=== PATIENT | male | born 2000 | race African-American/Black ===

== ENCOUNTER 2021-04-17 16:08 | Emergency (ER) | payer BC, MEDICAID, SELFPAY ==
[2021-04-17 18:58] VITALS: BP 142/82; PULSE 84; RESP 16; TEMP 36.4; O2SAT 100
--- NOTE | 2021-04-17 21:33 | PC.NURSE ---
Pt walks out prior to seeing provider. No sign of distress of any kind. Ambulatory with steady gait.
== END 2021-04-18 04:33 | disposition left against medical advice (07) ==
DX: R10.31 Right lower quadrant pain (principal)
CPT/HCPCS: 99199

== ENCOUNTER 2021-04-18 14:36 | Emergency (ER) | payer BC, MEDICAID, SELFPAY ==
[2021-04-18 14:41] VITALS: BP 136/77; PULSE 89; RESP 12; TEMP 36.7; O2SAT 100
--- NOTE | 2021-04-18 14:47 | ED.GENADULT ---
HPI - General Adult General Chief complaint: Abdominal Pain Stated complaint: R SIDED ABD PAIN Time Seen by Provider: 04/18/21 14:48 Source: patient, RN notes reviewed and old records reviewed Mode of arrival: ambulatory Limitations: no limitations History of Present Illness HPI narrative: 20 year old male who presents to [facility] care with complaints of right lower abdominal pain which started late Saturday evening.He reports that he has had episodes of nausea with some emesis and appetite is decreased, Patient reports that he went to the ER last evening and waited for 5 hours and left because they were so busy. Today he states he continues to feel bloated, had loose stool this morning and continues to have nausea and pain in the right lower abdomen. Patient denies any known fevers or chills or sweats. Patient is tender to right lower abdominal quadrant on palpation. Patient denies any burning or pain with urination or any visible hematuria. Related Data Home Medications Medication Instructions Recorded Confirmed No Home Medications 04/18/21 04/18/21 Allergies Allergy/AdvReac Type Severity Reaction Status Date / Time No Known Allergies Allergy Verified 04/18/21 14:44 Review of Systems Review of Systems: CONSTITUTIONAL: Denies fever, chills, or sweats. EYES: Denies visual changes, redness, or discharge. ENT: Denies rhinorrhea, congestion, sore throat, or otalgia. CARDIOVASCULAR: Denies chest pain, palpitations, or edema. RESPIRATORY: Denies cough or dyspnea. GASTROINTESTINAL: right lower quadrant abdominal pain, nausea, vomiting, and diarrhea. with symptoms since late Saturday night GENITOURINARY: Denies dysuria or hematuria. SKIN: Denies rash or itching. MUSCULOSKELETAL: Denies back pain, joint pain, or myalgia. NEUROLOGIC: Denies headache, numbness, or weakness. PSYCHIATRIC: Denies anxiety or depression. All systems reviewed & are unremarkable except as noted in HPI and below PMFSH Past Medical History Medical History (Updated 04/18/21 @ 15:46 by Samantha Vazquez NP) Asthma as child Surgical History Surgical History (Updated 04/18/21 @ 15:20 by Samantha Vazquez NP) History of tonsillectomy Family History Family History (Updated 04/18/21 @ 15:16 by Samantha Vazquez NP) Grandparent Diabetes mellitus Mother Hypertension Social History Social History (Updated 04/18/21 @ 15:17 by Samantha Vazquez NP) Tobacco type: e-cigarettes/vaping Alcohol intake: current Alcohol use details: social Substance use: current Substance use type: marijuana Last use: social Gender identity (if verbalized by the patient): Male Comments At time of signature, agree with nursing past medical, surgical, social and family history. There is no relevant family history pertinent to the presenting complaint Exam Narrative: GENERAL: Well-appearing, well-nourished, and in mild distress. HEAD: Normocephalic, atraumatic. EYES: PERRLA and EOMI. ENT: Nares clear, no rhinorrhea or epistaxis. Mucous membranes moist.TMs normal with good light reflex, throat pink with no lesions or exudates, tonsils absent NECK: Supple. no lymphadenopathy CHEST: Clear to auscultation. No respiratory distress.SAO2 100% on room air. HEART: Regular rate and rhythm. No murmur heard. Normal peripheral pulses. ABDOMEN: Soft, McBurney point tenderness right lower abdomen, nondistended, normal active bowel sounds. EXTREMITIES: Normal range of motion. No edema. SKIN: Warm, dry, no rash. NEURO: No focal deficits. Alert and oriented x3. Course Course Level of Care: Express Care Visit Vital Signs Vital signs: Vital Signs Temperature 36.7 C 04/18/21 14:41 Pulse Rate 89 04/18/21 14:41 Respiratory Rate 12 04/18/21 14:41 Blood Pressure 136/77 04/18/21 14:41 Pulse Oximetry 100 04/18/21 14:41 Temperature 36.7 C 04/18/21 14:41 Pulse Rate 89 04/18/21 14:41 Respiratory Rate 12 04/18/21 14:41 Blood Pressure
== END 2021-04-18 15:11 | disposition short-term general hospital (02) ==
PROVIDERS: Emergency Provider Registered Nurse
DX: R10.31 Right lower quadrant pain (principal); F17.290 Nicotine dependence, other tobacco product, uncomplicated
CPT/HCPCS: 81003; 99212; G0463

== ENCOUNTER 2021-04-18 15:31 | Day surgery (SDC) | payer BC, MEDICAID, SELFPAY ==
--- NOTE | ~2021-04-18 | XR_ITS ---
EXAMINATION: XR chest 1V portable DATE: 04/18/2021 16:45 INDICATION: Right upper quadrant abdominal pain. TECHNIQUE: A single frontal view of the chest was obtained. COMPARISON: None. FINDINGS: The chest demonstrates clear lungs without pneumonia, pleural effusion, or pneumothorax. Th e heart size is normal. IMPRESSION: 1. No acute cardiopulmonary disease. Reviewed, dictated and finalized at location A. ETIC COORDINATOR
--- NOTE | ~2021-04-18 | CT_ITS ---
EXAMINATION: CT abdomen pelvis w con DATE: 04/18/2021 17:26 INDICATION: Right upper quadrant abdominal pain TECHNIQUE: Computed tomography (CT) of the abdomen and pelvis was performed with 100 cc Omnipaque 350 intravenous contrast. Automated exposure control and iterative reconstruction technique were employe d. Exam dose: 360.43 mGy-cm total exam DLP. COMPARISON: None. FINDINGS: Left gynecomastia is noted. The lung bases are clear. Normal heart size. No pericardial or pleural effusion. Very small sliding hiatal hernia. The liver, spleen, pancreas, and adrenal glands and kidneys are unremarkable except for 7 mm left belen al cyst. The gallbladder is present. No gallbladder wall thickening or pericholecystic fluid or fat s tranding. No bile duct or pancreatic duct dilatation. Normal caliber of the abdominal aorta. No intraperitoneal or retroperitoneal or pelvic mass lesion or adenopathy. There is mild free fluid in the dependent pelvis. The urinary bladder, prostate gland and seminal vesicles are unremarkable. The appendix appears to be mildly dilated with thickening of the wall, suggesting possible appendicit is in the right lower quadrant (series 3 images 136-141). Included skeletal structures are unremarkable. IMPRESSION: Appendicitis is suggested; clinical correlation is advised Mild free fluid in the dependent pelvis Left gynecomastia Reviewed, dictated and finalized at Location A. Reviewed, dictated and finalized at location A. INTELLIGENCE OFFICER
[2021-04-18 16:07] VITALS: BP 130/80; PULSE 70; RESP 14; TEMP 36.8; O2SAT 100
--- NOTE | 2021-04-18 16:27 | ED.ABDPAIN ---
HPI - Abdominal Pain General Chief Complaint: Abdominal Pain Stated Complaint: rlq pain Time Seen by Provider: 04/18/21 16:27 Source: patient Mode of arrival: ambulatory Limitations: no limitations History of Present Illness HPI narrative: 20 years old -[place] male presents with right lower abdominal pain started 4 days ago, intermittent, no aggravating or relieving factors, no history of abdominal surgery, patient does vape and uses marijuana, last Covid vaccine May 2020 Related Data Home Medications Medication Instructions Recorded Confirmed No Home Medications 04/18/21 04/18/21 Allergies Allergy/AdvReac Type Severity Reaction Status Date / Time No Known Allergies Allergy Verified 04/18/21 14:44 Review of Systems Review of Systems: CONSTITUTIONAL: Denies fever, chills, or sweats. EYES: Denies visual changes, redness, or discharge. ENT: Denies rhinorrhea, congestion, sore throat, or otalgia. CARDIOVASCULAR: Denies chest pain, palpitations, or edema. RESPIRATORY: Denies cough or dyspnea. GASTROINTESTINAL: Denies abdominal pain, nausea, vomiting, or diarrhea. GENITOURINARY: Denies dysuria or hematuria. SKIN: Denies rash or itching. MUSCULOSKELETAL: Denies back pain, joint pain, or myalgia. NEUROLOGIC: Denies headache, numbness, or weakness. PSYCHIATRIC: Denies anxiety or depression. PMFSH Past Medical History Medical History (Updated 04/18/21 @ 18:38 by Althea Howard MD) Asthma as child Surgical History Surgical History (Updated 04/18/21 @ 15:20 by Samantha Vazquez NP) History of tonsillectomy Family History Family History (Updated 04/18/21 @ 15:16 by Samantha Vazquez NP) Grandparent Diabetes mellitus Mother Hypertension Social History Social History (Updated 04/18/21 @ 15:17 by Samantha Vazquez NP) Tobacco type: e-cigarettes/vaping Alcohol intake: current Alcohol use details: social Substance use: current Substance use type: marijuana Last use: social Gender identity (if verbalized by the patient): Male Exam Narrative: General appearance: Well-developed, well-nourished Skin: Normal color Head: Normocephalic, nontraumatic Eyes: Clear conjunctiva ENT: Oropharynx normal, ears normal, nose normal Neck: Supple, nontender Chest and respiratory: Airway patent, no respiratory distress, no accessory muscle use Heart: Regular rate/rhythm Abdomen: Soft, mild tenderness right lower quadrant, no guarding or rebound, no organomegaly, quiet bowel sounds Vascular: Normal peripheral pulses, normal capillary refill. Musculoskeletal: Normal range of motion, nontender back Neurologic: Alert and oriented ?3, PRODUCT COMMUNICATIONS MANAGER is normal as tested, no gross motor deficit Course Course Emergency Course: Stable Consultations Consultation #1: Dr. Hess Date: 04/18/21 Time: 18:40 Vital Signs Vital signs: Vital Signs Temperature 36.8 C 04/18/21 16:07 Pulse Rate 70 04/18/21 16:07 Respiratory Rate 14 04/18/21 16:07 Blood Pressure 130/80 04/18/21 16:07 Pulse Oximetry 100 04/18/21 16:07 Temperature 36.8 C 04/18/21 16:07 Pulse Rate 70 04/18/21 16:07 Respiratory Rate 14 04/18/21 16:07 Blood Pressure 130/80 04/18/21 16:07 Pulse Oximetry 100 04/18/21 16:07 MDM - Abdominal Pain MDM Narrative Medical decision making narrative: Abdominal pain Differential Diagnosis Differential diagnosis: Likely abdominal pain, acute appendicitis, calculus of kidney, constipation and pancreatitis Lab Data Result diagrams: 04/18/21 16:21 04/18/21 16:21 Labs: Lab Results 04/18/21 04/18/21 Range/Units 16:21 16:21 WBC 6.3 (4.5-10.0) K/mm3 RB
[2021-04-18 16:49] LABS: Basophils Percent Auto 0.5 % (0.2-1.2); Eosinophils Percent Auto 0.3 % (0-4.4); Hemoglobin 15.1 g/dL (14.0-18.0); Immature Granulocyte Absolute 0.02 K/mm3 (0.00-0.031); Immature Granulocyte Percent A 0.3 % (0-0.5); Lymphocytes Absolute Auto 1.47 K/mm3 (0.9-3.2); Lymphocytes Percent Auto 23.3 % (18.3-44.2); Mean Corpuscular HGB Conc 35.1 g/dl (32-36); Mean Corpuscular Hemoglobin 32.9 pg (26-34); Mean Corpuscular Volume 93.7 fl (80-100); Mean Platelet Volume 11.2 fl (7.4-10.4); Monocytes Absolute Auto 0.5 K/mm3 (0.1-0.6); Monocytes Percent Auto 8.1 % (2.6-8.5); Neutrophils Absolute Auto 4.3 K/mm3 (1.3-6.7); Neutrophils Percent Auto 67.5 % (45.5-73.1); Platelet Count Result 167 k/mm3 (150-375); Red Blood Count 4.59 M/mm3 (4.6-6.20); Red Cell Distribution Width 12.5 % (11.5-14.5); White Blood Count 6.3 K/mm3 (4.5-10.0)
[2021-04-18] MEDS: SODIUM CHLORIDE 0.9% IV 1,000 ML 999 ML IV CONT (16:51)
[2021-04-18] MEDS: ONDANSETRON INJ 4 MG/2 ML VIAL IV PUSH (16:51)
[2021-04-18 16:58] LABS: Alanine Aminotransferase 12 U/L (4-50); Albumin Level 4.8 g/dL (3.5-5.1); Alkaline Phosphatase 59 U/L (38-126); Anion Gap 10 mmol/L (8-16); Aspartate Amino Transferase 23 U/L (17-59); Bilirubin,Total 1.1 mg/dL (0.2-1.3); Blood Urea Nitrogen 15 mg/dL (9-20); Calcium 9.5 mg/dL (8.4-10.2); Carbon Dioxide 28 mmol/L (22-30); Chloride 100 mmol/L (98-107); Estimated CRCL calculation 107 ml/min; Estimated Glomerular Filt Rate > 60; Glucose 97 mg/dL (65-110); Lipase 76 U/L (23-300); Potassium 3.3 mmol/L (3.4-5.0); Sodium 138 mmol/L (137-145)
--- NOTE | 2021-04-18 18:14 | PC.NURSE ---
patient states last food was 1200 and drink 1300. tested + COVID 03/14/21
[2021-04-18] MEDS: LACTATED RINGERS 1,000 ML 150 ML IV CONT (19:25)
[2021-04-18 21:10] VITALS: PULSE 68; RESP 16; O2SAT 100
[2021-04-18 21:14] VITALS: BP 138/83; PULSE 64; RESP 16; O2SAT 100
[2021-04-18 22:21] VITALS: BP 130/68; PULSE 60; RESP 14; TEMP 36.5; O2SAT 100
[2021-04-18 22:25] VITALS: BMI 26.6
[2021-04-18 22:39] VITALS: BMI 26.6
--- NOTE | 2021-04-18 22:50 | PC.NURSE ---
This patient, Junaid Martinez, was admitted to [facility] Surgery-10. Patient/family oriented to hospital policies and general routines including ID bracelet, bed and alarms, visiting hours, pain management, procedures, bathroom and other care routines, personal items, smoking policy, room service/diet, and visiting hours. Information on how to activate the Rapid Response Team has been discussed. Patient/Family are encouraged to report perceived risks to care and to ask questions if they do not understand what they are told or what they should do.
[2021-04-19] VITALS (11 sets, daily range): BP systolic 117–132; BP diastolic 53–86; PULSE 56–88; RESP 12–18; TEMP 36.5–37.3; O2SAT 99–100
[2021-04-19] MEDS: LACTATED RINGERS 1,000 ML 150 ML IV CONT ×2 (02:12→08:40)
[2021-04-19 06:00] LABS: Basophils Percent Auto 0.5 % (0.2-1.2); Eosinophils Absolute Auto 0.1 K/mm3 (0-0.3); Eosinophils Percent Auto 1.7 % (0-4.4); Hematocrit 37.9 % (42.0-52.0); Hemoglobin 13.5 g/dL (14.0-18.0); Immature Granulocyte Absolute 0.01 K/mm3 (0.00-0.031); Immature Granulocyte Percent A 0.2 % (0-0.5); Lymphocytes Absolute Auto 2.74 K/mm3 (0.9-3.2); Lymphocytes Percent Auto 43.1 % (18.3-44.2); Mean Corpuscular HGB Conc 35.6 g/dl (32-36); Mean Corpuscular Hemoglobin 33.5 pg (26-34); Mean Platelet Volume 11.4 fl (7.4-10.4); Monocytes Absolute Auto 0.8 K/mm3 (0.1-0.6); Neutrophils Absolute Auto 2.7 K/mm3 (1.3-6.7); Neutrophils Percent Auto 42.5 % (45.5-73.1); Platelet Count Result 165 k/mm3 (150-375); Red Blood Count 4.03 M/mm3 (4.6-6.20); Red Cell Distribution Width 12.5 % (11.5-14.5); White Blood Count 6.4 K/mm3 (4.5-10.0)
[2021-04-19 06:26] LABS: CRP 0.8 mg/dL (<1.0)
--- NOTE | 2021-04-19 09:28 | PM.IMHP ---
H&P: HPI History of Present Illness Date/Time: 04/19/21 09:28 Chief Complaint: Right lower quadrant abdominal pain Narrative: This is a 20-year-old male who is transitioning to female, who presented to the emergency department with complaints of right lower quadrant abdominal pain. She reports first noticing mild right-sided abdominal pain Saturday night, 4 days ago. She first thought this was a muscle strain, and the pain remained constant. The abdominal pain was aggravated by walking and movement. She reports 1 episode of vomiting on Saturday after the onset of pain. Denies any fever or chills. She reports trying to come to the [place] ED on Saturday, but left prior to being seen because of a potentially long wait. Yesterday, she decided to go to an urgent care and they sent her to the ED for further evaluation. Labs showed a normal white blood cell count and otherwise unremarkable labs. Chest x-ray negative. CT scan of abdomen pelvis showed possible acute appendicitis with the appendix appearing mildly dilated with thickening of the wall. No evidence of perforation or abscess. The patient was admitted for observation overnight and started on IV Zosyn, IV fluids, and made NPO. She is now seen in the preop area as an overflow patient. She reports her abdominal pain is slightly better, but still constant. She reports intermittent mild nausea today and yesterday, but no further vomiting. No other complaints at this time. She reports having a COVID vaccination last year with the 2nd dose in May of 2020. She was also diagnosed with COVID-19 in February of 2021, therefore she has held off getting the booster. She denies any recent known COVID contacts or further symptoms. Review of Systems Review of Systems: All systems reviewed & are unremarkable except as noted in HPI and below Constitutional: Constitutional: Reports as per HPI, Denies chills, Denies fatigue and Denies fever(s) Eyes: Eyes: Reports no additional eye complaints ENT: Reports system reviewed and no additional complaints, except as documented and Reports Normal hearing present Cardiovascular: Cardiovascular: Reports no additional cardiovascular complaints, Denies chest pain and Denies leg edema Respiratory: Respiratory: Reports no additional respiratory complaints, Denies cough and Denies dyspnea Gastrointestinal: Gastrointestinal: Reports as per HPI, Reports no additional gastrointestinal complaints, Reports abdominal pain (RLQ), Denies melena, Denies bloating, Denies hematochezia, Denies change in bowel habits, Denies diarrhea, Reports nausea and Reports vomiting Genitourinary: Genitourinary: Denies hematuria and Denies dysuria Musculoskeletal: Musculoskeletal: Reports no additional musculoskeletal complaints and Denies joint swelling Neurologic: Reports system reviewed and no additional complaints, except as documented, Denies dizziness, Denies focal weakness, Denies numbness and Denies tingling Psychiatric: Psychiatric: Denies anxiety and Denies depression [facility] Past Medical History Medical History Asthma as child Surgical History Surgical History History of tonsillectomy Family History Family History Grandparent Diabetes mellitus Mother Hypertension Social History Social History Smoking status: Current some day smoker Tobacco type: e-cigarettes/vaping Alcohol intake: current Alcohol use details: social Substance use: current Substance use type: marijuana and other Other substance usage details: vape Last use: social Gender identity (if verbalized by the patient): Male Spiritual care concerns: No Meds Home Medications and Allergies Home Medications Medication Instructions Recorded Confirmed
[2021-04-19] MEDS: CHLORHEXIDINE GLUCONATE 4% SOL 120 ML BTL 1 APPLIC TOPICAL (11:50)
--- NOTE | 2021-04-19 15:17 | SUR.PREOP ---
PT NOTIFIED OF SURGERY DELAY UNTIL POSSIBLY 1800. PT WILL TEXT HIS MOTHER AND LET HER KNOW.
[2021-04-19] MEDS: LACTATED RINGERS 1,000 ML 30 ML IV CONT ×2 (15:25→19:40)
--- NOTE | 2021-04-19 15:48 | WPDHPUPDATE1 ---
History and Physical Update Update Date/Time: 04/19/21 15:48 History and Physical has been reviewed, including an updated exam of the patient. There are NO changes in the patient's condition. Risks, benefits, and alternatives have been discussed and questions answered. Patient agrees to proceed with procedure.
--- NOTE | 2021-04-19 16:57 | WPDANESEPPF ---
Anes - Initial Pre Proc Eval Procedure: Operation Date: 04/19/21 15:30 Proposed Procedures p Laparoscopic Appendectomy,Possible Open - Syed Hess MD Date/Time: 04/19/21 16:57 Surgeon: Syed Hess MD Pre Op Diagnosis: Acute appendicitis Patient Data Age: 20 Gender: M Height: 1.7 m Weight: 77.11 kg Last Vital Signs Temp 37.3 C 04/19/21 14:58 Pulse 78 04/19/21 14:58 Resp 18 04/19/21 14:58 BP 132/65 04/19/21 14:58 Pulse Ox 100 04/19/21 14:58 Allergies Allergy/AdvReac Type Severity Reaction Status Date / Time No Known Allergies Allergy Verified 04/18/21 14:44 Home Medications Medication Instructions Recorded Confirmed Type No Home Medications 04/18/21 04/18/21 History Laboratory Tests 04/18/21 04/18/21 04/19/21 16:21 16:21 05:23 WBC 6.3 K/mm3 K/mm3 6.4 K/mm3 K/mm3 (4.5-10.0) (4.5-10.0) RBC 4.59 M/mm3 L M/mm3 4.03 M/mm3 L M/mm3 (4.6-6.20) (4.6-6.20) Hgb 15.1 g/dL g/dL 13.5 g/dL L g/dL (14.0-18.0) (14.0-18.0) Hct 43.0 % % 37.9 % L % (42.0-52.0) (42.0-52.0) MCV 93.7 fl fl 94.0 fl fl (80-100) (80-100) MCH 32.9 pg pg 33.5 pg pg (26-34) (26-34) MCHC 35.1 g/dl g/dl 35.6 g/dl g/dl (32-36) (32-36) RDW 12.5 % % 12.5 % % (11.5-14.5) (11.5-14.5) Plt Count 167 k/mm3 k/mm3 165 k/mm3 k/mm3 (150-375) (150-375) MPV 11.2 fl H fl 11.4 fl H fl (7.4-10.4) (7.4-10.4) Immature Gran % (Auto) 0.3 % % 0.2 % % (0-0.5) (0-0.5) Neut % (Auto) 67.5 % % 42.5 % L % (45.5-73.1) (45.5-73.1) Lymph % (Auto) 23.3 % % 43.1 % % (18.3-44.2) (18.3-44.2) [place] % (Auto) 8.1 % % 12.0 % H % (2.6-8.5) (2.6-8.5) Eos % (Auto) 0.3 % % 1.7 % % (0-4.4) (0-4.4) Baso % (Auto) 0.5 % % 0.5 % % (0.2-1.2) (0.2-1.2) Lymph # (Auto) 1.47 K/mm3 K/mm3 2.74 K/mm3 K/mm3 (0.9-3.2) (0.9-3.2) [place] # (Auto) 0.5 K/mm3 K/mm3 0.8 K/mm3 H K/mm3 (0.1-0.6) (0.1-0.6) Eos # (Auto) 0.0 K/mm3 K/mm3 0.1 K/mm3 K/mm3 (0-0.3) (0-0.3) Baso # (Auto) 0.0 K/mm3 K/mm3 0.0 K/mm3 K/mm3 (0.0-0.1) (0.0-0.1) Abs Immat Gran (auto) 0.02 K/mm3 K/mm3 0.01 K/mm3 K/mm3 (0.00-0.031) (0.00-0.031) Absolute Neuts (auto) 4.3 K/mm3 K/mm3 2.7 K/mm3 K/mm3 (1.3-6.7) (1.3-6.7) Absolute Nucleated RBC 0.0 K/mm3 K/mm3 0.0 K/mm3 K/mm3 (0.0-0.012) (0.0-0.012) Nucleated RBC % 0.0 % % 0.0 % % (0.0-0.2) (0.0-0.2) Sodium 138 mmol/L mmol/L (137-145) Potassium 3.3 mmol/L L mmol/L (3.4-5.0) Chloride 100 mmol/L mmol/L (98-107) Carbon Dioxide 28 mmol/L mmol/L (22-30) Anion Gap 10 mmol/L mmol/L (8-16) BUN 15 mg/dL mg/dL (9-20) Creatinine 0.90 mg/dL mg/dL (0.7-1.3) Estim Creat Clear Calc 107 ml/min ml/min Estimated GFR > 60 (59 - ) Glucose 97 mg/dL mg/dL (65-110) Calcium 9.5 mg/dL mg/dL (8.4-10.2) Total Bilirubin 1.1 mg/dL mg/dL (0.2-1.3) AST 23 U/L U/L (17-59) ALT 12 U/L U/L (4-50) Alkaline Phosphatase 59 U/L U/L (38-126) C-Reactive Protein Total Protein 7.0 g/dL g/dL (6.3-8.2) Albumin 4.8 g/dL g/dL (3.5-5.1) Lipase 76 U/L U/L (23-300) 04/19/21 05:23 WBC RBC Hgb Hct MCV MCH MCHC RDW Plt Count MPV Immature Gran % (Auto) Neut % (Auto) Lymph % (Auto) [place] % (Auto) Eos % (Auto) Baso % (Auto) Lymph # (Auto) [place] # (Auto) Eos # (Auto) Baso # (Auto) Abs Immat Gran (auto) Absolute Neuts (auto) Absolute Nucleated RBC Nucleated RBC % Sodium Potassium Chloride Carbon Dioxide Anion Gap BUN Creatinine
[2021-04-19] MEDS: BUPIVACAINE/EPINEPHRINE 0.25% 10 ML VIAL 20 ML INFILTRATE (18:56)
--- NOTE | 2021-04-19 19:46 | W.PM.PROC2 ---
Procedure Note - Detailed Date of Procedure 04/19/21 Pre-op Diagnosis Acute uncomplicated appendicitis Post-op Diagnosis same Procedure Performed Laparoscopic appendectomy Surgeon Syed Hess MD Packaging Specialist Aneta CUADRA. OR Market News Reporter Anesthesia general Indications Patient presented to the emergency room at [facility] with complaints of right lower quadrant abdominal pain that was for persistent the last 3-4 days. Workup in emergency room showed fairly normal labs but CT scan of the abdomen and pelvis suggested early appendicitis and the patient continued to have discomfort even though antibiotics for 18 or more hours were given. After thorough discussion of the risks benefits possible complications and alternatives the patient wished to proceed with an appendectomy. Findings Appendix was lying in the right lateral gutter just inferior to the cecum with the somewhat red injected distal 1/6 of the appendix. There were no significant adhesions there was no obvious sign of perforation. Description of Procedure The patient was seen again in the Holding Room. The risks, benefits, complications, treatment options, and expected outcomes were discussed with the patient and/or family. The possibilities of reaction to medication, pulmonary aspiration, perforation of viscus, bleeding, recurrent infection, finding a normal appendix, the need for additional procedures, failure to diagnose a condition, and creating a complication requiring transfusion or operation were discussed. There was concurrence with the proposed plan and informed consent was obtained. The site of surgery was properly noted/marked. The patient was taken to Operating Room, and a time out was preformed which identified this as the proper patient, and the procedure verified as laparoscopic appendectomy, possible open. The patient was placed in the supine position and general anesthesia was induced, along with placement of an orogastric tube, SCD hose, and a Wolfe catheter. The abdomen was prepped and draped in a sterile fashion. A 5 mm umbilical incision was made and the peritoneal cavity was accessed using the Veress needle technique. Once the abdomen was insufflated to 14 mmHg pressure a 5 mm XL trocar over the 0? 5 mm scope was carefully twisted into the abdomen via the umbilicus. The pneumoperitoneum was then established to steady pressure of 14 mm Hg. A 12 mm laparoscopic port was placed through a transverse suprapubic incision. An additional 5 mm cannula was then placed in the left lower quadrant of the abdomen at a level half way between the umbilicus and pubic symphysis under direct vision. A careful evaluation of the entire abdomen was carried out. The patient was placed in Trendelenburg and left lateral decubitus position. The small intestines were retracted in the cephalad and left lateral direction away from the pelvis and right lower quadrant. The patient was found to have an enlarged and inflamed appendix that was extending [into the right side of the pelvis. There was no evidence of perforation. The appendix was carefully dissected. Once it was free a 60 mm ethicon endogastroentestinal stapler ([employer]) with a vascular load was placed across the mesoappendix. This was fired and hemostasis was checked along the staple line and appeared to be adequate. For this patient, this divided the entire mesoappendix and we were able to proceed immediately to stapling off the appendix at it's junction with the cecum. The appendix was then divided at its base using the same 45 mm stapler with a 3.5 mm bowel wall load. Minimal appendiceal stump was left in place. There was no evidence of bleeding, leakage, or complication after division of the appendix at its junction with the cecum. The appendix was then placed in an endobag which had been brought through the 12 mm suprapubic port site. There were a few free deloris that were identified after the final stapling process and these were
[2021-04-19] MEDS: fentaNYL CITRATE INJ (*CRX) 100 MCG/2 ML VIAL 25 MCG IV PUSH ×8 (19:50→20:20)
[2021-04-19] MEDS: ONDANSETRON INJ 4 MG/2 ML VIAL IV PUSH (20:00)
[2021-04-19] MEDS: HYDROmorphone HCL INJ (*CRX) 1 MG/ML SYR 0.25 MG IV PUSH ×4 (20:55→21:25)
--- NOTE | 2021-04-20 07:50 | PM.DS ---
DS: Admitting Diagnosis Discharge Date 04/19/21 Admitting Diagnosis Acute uncomplicated appendicitis DS: Discharge Diagnosis Discharge Diagnosis (1) Acute appendicitis: Onset Date: ~04/15/21 Qualifiers: Acute appendicitis type: unspecified acute appendicitis type Qualified Code(s): K35.80 - Unspecified acute appendicitis Code(s): K35.80 - Unspecified acute appendicitis Status: Acute Assessment and Plan: this was the main reason for the patient's observation admission. On CT scan in the ED a question was raised of possible early acute appendicitis. The patient continued to have abdominal symptoms even with 18 hours of IV antibiotics and pain medication. Therefore after thorough discussion of the options patient decided to proceed with a laparoscopic appendectomy. (2) Vapes nicotine containing substance: Onset Date: Unknown Code(s): Z72.0 - Tobacco use Status: Acute Assessment and Plan: Encouraged cessation DS: Summary Hospital Course Reason for hospitalization: acute uncomplicated appendicitis Hospital Course: patient admitted for observation IV antibiotics and potential discharge with antibiotic treatment for acute uncomplicated appendicitis. However, after 18 hours of IV antibiotics the patient was still having significant discomfort and opted to continue care by proceeding with a operative intervention. Patient underwent standard laparoscopic appendectomy without incident. Patient was comfortable in the postop area including taking oral liquids and pain medication. Therefore, patient was allowed to be discharged with close follow-up as an outpatient. Time spent discussing smoking cessation with patient: 3 to 10 minutes Status at Discharge Functional status at discharge: independent ambulation Overall status at discharge: patient is not back to baseline Time Spent with Patient Time attestation: Total time spent providing and/or coordinating discharge services: Time spent: Less than 30 minutes Specific discharge activities: patient structures and wound care Patient struck to the on gradually increasing diet Patient started on appropriate follow-up Pain medications sent to pharmacy ( 24 hour) upon discharge in the evening. Exam Const: General: cooperative, comfortable, alert and awake Orientation/consciousness: patient oriented x3 HENMT: Head: normal to inspection Mouth: Yes moist mucous membranes Eyes: Sclera: sclerae normal Pupils: Equal, round and reactive pupils present Neck: Neck: normal visual inspection and no JVD Chest: Chest palpation & inspection: normal inspection of the chest Resp: Effort & Inspection: normal respiratory effort Auscultation: clear to auscultation bilaterally Cardio: Jugular venous distension: no JVD Rate: regular rate GI: Inspection: normal to inspection and incision ( Three laparoscopic port sites, clean and dry.) GI Palp: Yes Soft to palpation and Yes Tenderness to palpation present (GI) ( mainly near incisions) Auscultation: Hypoactive bowel sounds present : Penis: Yes normal penis and Yes circumcised Scrotum: scrotum normal Testes: Testes normal Neuro: General: patient oriented x3 Cranial nerves: Yes Equal, round and reactive pupils present DS: Data Data Completed and Pending Pending studies at discharge: Pending at discharge 04/19/21 19:06 Surgical [PTH] Routine Procedures/Treatments: Laparoscopic appendectomy Imaging Attestation: I personally reviewed and interpreted this imaging study as follows: My impression: mildly dilated appendix possibly in the retrocecal position Radiologist's impression: CT scan of the abdomen and pelvis: The appendix appears to be mildly dilated with thickening of the wall, suggesting possible appendicitis in the right lower quadrant (series 3 images [id number]). Included skeletal structures are unremarkable. IMPRESSION: Appendicitis is suggested; clinical
== END 2021-04-19 22:45 | disposition home or self-care (01) ==
LOC: ANHED 18:38 → ANHSUROVER 04-19 09:49 → ANHSURGERY 04-20 08:54
PROVIDERS: Emergency Provider Emergency Medicine; Visit Provider Surgery
PROC: 0DTJ4ZZ Resection of Appendix, Percutaneous Endoscopic Approach (ICD-10-PCS; CPT 44970; principal; 2021-04-19 15:30)
DX: K35.80 Unspecified acute appendicitis (principal); F17.290 Nicotine dependence, other tobacco product, uncomplicated; F12.90 Cannabis use, unspecified, uncomplicated
CPT/HCPCS: 44970; 36415; 71045; 74177; 80053; 83690; 85025; 86140; 88304; 96361; 96365; 96375; 99285; J0131; J0330; J1100; J1170; J2250; J2405; J2543; J2590; J2704; J2710; J3010; J7030; J7120; Q9967

== ENCOUNTER 2021-07-25 14:58 | Emergency (ER) | payer BC, MEDICAID, SELFPAY ==
--- NOTE | 2021-07-25 15:04 | ED.URI ---
HPI - URI/Sore Throat General Chief Complaint: Upper Respiratory Infection Stated Complaint: COUGH Time Seen by Provider: 07/25/21 15:04 Source: patient, family, RN notes reviewed and old records reviewed Mode of arrival: ambulatory Limitations: no limitations History of Present Illness HPI Narrative: 21-year-old male presents to the [facility] with complaints of cough, body aches, headache, fatigue for the last 3 days. No treatment prior to arrival. Denies any chest pain. No abdominal pain. Related Data Home Medications Medication Instructions Recorded Confirmed No Home Medications 07/25/21 07/25/21 Allergies Allergy/AdvReac Type Severity Reaction Status Date / Time No Known Allergies Allergy Verified 07/25/21 15:06 Review of Systems Review of Systems: All systems reviewed & are unremarkable except as noted in HPI and below Constitutional: Constitutional: Reports as per HPI, Reports chills, Denies fever(s) and Denies headache(s) Eyes: Eyes: Reports no additional eye complaints ENT: Reports as per HPI, Denies vertigo, Denies dizziness, Denies headache(s), Denies nasal congestion and Reports sore throat Cardiovascular: Cardiovascular: Reports no additional cardiovascular complaints, Denies chest pain, Denies syncope, Denies rapid heart rate and Denies dyspnea Respiratory: Respiratory: Reports as per HPI, Reports chest congestion, Reports cough, Denies dyspnea and Denies wheezing Gastrointestinal: Gastrointestinal: Reports no additional gastrointestinal complaints, Denies abdominal pain, Denies diarrhea, Denies nausea and Denies vomiting Musculoskeletal: Musculoskeletal: Reports no additional musculoskeletal complaints and Denies numbness Integumentary/Breasts: Skin/Breast: Reports system reviewed and no additional complaints, except as docu Neurologic: Reports system reviewed and no additional complaints, except as documented, Denies vertigo, Denies dizziness, Denies syncope, Denies headache(s), Denies focal weakness and Denies numbness Psychiatric: Psychiatric: Reports no additional psychiatric complaints Allergic/Immunologic: Allergic/Immunologic: Reports no additional allergic/immunologic complaints and Denies wheezing PMFSH Past Medical History Medical History Asthma as child Surgical History Surgical History History of tonsillectomy Family History Family History Grandparent Diabetes mellitus Mother Hypertension Social History Social History Smoking status: Current some day smoker Tobacco type: e-cigarettes/vaping Alcohol intake: current Alcohol use details: social Substance use: current Substance use type: marijuana and other Other substance usage details: vape Last use: social Gender identity (if verbalized by the patient): Male Spiritual care concerns: No Comments At the time of my signature, I reviewed and agree with the nursing past medical, surgical, social, and family history. There is no relevant family history pertinent to the patient complaint. Exam Const: General: cooperative, healthy appearing, no acute distress, well developed and alert Nutritional Appearance: well nourished Orientation/consciousness: patient oriented x3 Limitations: no limitations HENMT: Head: normal to inspection Ears: external ears normal, TM's normal bilaterally and EAC's normal General nose exam: Normal nasal mucous membranes and turbinates present and Nasal discharge present mucoid Face and sinus: normal facial exam and face symmetric Mouth: Yes Normal oral and palatal mucosa present Throat: posterior oropharynx normal, tonsils normal and uvula midline Eyes: Conjunctivae: conjunctivae normal Pupils: Equal, round and reactive pupils present Neck: Neck: no
[2021-07-25 15:05] VITALS: BP 147/86; PULSE 87; RESP 18; TEMP 37.1; O2SAT 99
== END 2021-07-25 15:22 | disposition home or self-care (01) ==
PROVIDERS: Emergency Provider Nurse Practitioner
DX: J10.1 Influenza due to other identified influenza virus with other respiratory manifestations (principal); F17.290 Nicotine dependence, other tobacco product, uncomplicated
CPT/HCPCS: 87804; 99213; G0463